=== PATIENT | male | born 1935 | race Caucasian/White ===

== ENCOUNTER → 2016-09-11 | Outpatient (CLI) | payer MEDICARE, OTHER ==
[~2016-09-11] MED LIST: BENADRYL25 MG PO; BONIVA150 MG PO; CALTRATE-600 D600 MG PO; COLACE-DPS100 MG PO; COREG25 MG PO; COUMADIN2 MG PO; COUMADIN3 MG PO; DULCOLAX10 MG PR; DULERA 100/58.8 GM IH; FLEXERIL-DPS10 MG PO; FLOMAX DPS0.4 MG PO; LASIX DPS20 MG PO; LOTRISONE TP; LYRICA25 MG PO; MAALOX DPS30 ML PO; MICRO-K DPS10 MEQ PO; MIRALAX17 GM PO; MUCINEX600 MG PO; NITROSTAT0.4 MG SL; OCEAN NASAL MIS45 ML NS; OXY IR DPS5 MG PO; PEPCID DPS20 MG PO; PROSCAR5 MG PO; PROVENTIL HFA6.7 GM IH; PROZAC40 MG PO; ROBITUSSIN PO; SENOKOT8.6 MG PO; SURFAK240 MG PO; SYNTHROID50 MCG PO; TYLENOL DPS325 MG PO; TYLENOL EXTRA500 MG PO; ULTRAM DPS50 MG PO; ULTRAM50 MG PO; VASOTEC DPS10 MG PO; ZOFRAN4 MG PO
== END | disposition home or self-care (01) ==
LOC: PTH.S 10:43
DX: Z01.812 Encounter for preprocedural laboratory examination (principal)

== ENCOUNTER 2016-09-25 09:58 | Inpatient (IN) | payer MEDICARE, OTHER ==
[~2016-09-25] VITALS: Ht 177.8 cm; Wt 89.1 kg
[~2016-09-25 09:58] MED LIST changes: -OXY IR DPS5 MG PO; -ULTRAM DPS50 MG PO
--- NOTE | 2016-09-27 13:33 | CO ---
ADMIT: 09/25/2016 RM/LOC: 502 [facility] MR#: [id number] [address] [address] LAZARO EDWARDS [address] [place] [address] Consultation SEX: M AGE: 81 : 1935 DATE OF CONSULTATION: 09/11/2016 ATTENDING PHYSICIAN: Neymar Mathews CONSULTING PHYSICIAN: Rudolph Matamoros MD CHIEF COMPLAINT: Preoperative evaluation facing a right total knee arthroplasty with Dr. Mathews. HISTORY OF PRESENT ILLNESS: Mr. Edwards is a very nice, 80-year-old, male with multiple medical problems as outlined below. He actually had his left total knee arthroplasty done last May of 2016 and got along well with it after a course in the skilled unit. His right knee has continued to give him trouble and it is very difficult for him to ambulate - he uses a walker because of his other multiple orthopedic issues - see below. He and Dr. Mathews have agreed to proceed to a right total knee arthroplasty and we were asked to see him for preoperative evaluation. Of course he has other multiple medical issues - see below. With his previous total knee arthroplasty, he has required skilled care and he wishes to consider that again with this operation. PAST MEDICAL HISTORY: Childhood and early development have been normal. His hospitalizations include March 2015 with acute respiratory failure, septic shock and lactic acidosis with pneumonia. He carries a diagnosis of nonischemic cardiomyopathy with an EF of 40%-45% with his last echo. He has chronic atrial fibrillation and is status post AV alex ablation and placement of single-chamber pacemaker in 2009 - he remains on Coumadin. He also has hypothyroidism, severe diffuse osteoporosis, systemic hypertension, type 2 diabetes (last hemoglobin A1c of 6.2% on 07/13/2016), benign prostatic hypertrophy, status post multiple fractures, peripheral neuropathy, and COPD/reactive airways. MEDICATIONS: His current medications include: 1. Potassium chloride ER 20 mEq b.i.d. 2. Ramipril 10 mg daily. 3. Carvedilol 25 mg b.i.d. 4. Warfarin 3 mg daily. 5. Finasteride 5 mg daily. 6. Lyrica 25 mg daily. 7. Tolterodine ER 4 mg at bedtime p.r.n. 8. Advair 250/50 Diskus one inhalation b.i.d. 9. Glen-Synephrine nasal spray, 1 both nostrils b.i.d. p.r.n. 10.Extra-strength Tylenol 500 q.6 hours. 11.Lasix 20 mg daily. 12.Calcium 600 with D 400 b.i.d. ALLERGIES: THERE IS AN ALLERGY REPORTED TO PENICILLIN. SOCIAL HISTORY: Reveals that he has never smoked. He does not use alcohol. 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 He has had increasing debilitation. FAMILY HISTORY: Not significant. REVIEW OF SYSTEMS: Pretty much 10 points negative except that since his last total knee arthroplasty, he required kyphoplasty at T11 and L2 on 08/09/2016 and got along well with that with good relief of his pain. PHYSICAL EXAMINATION: GENERAL: He is alert, walks fairly well with a walker. He is somewhat stooped from his previous injuries. VITAL SIGNS: His blood pressure is 125/70, pulse of about 85 and regular, O2 sats are 97% on room air. His weight is 180 pounds with a BMI of 27. HEENT: Essentially negative (he had full dental evaluation last May 2016). NECK: Reasonably supple. I do not detect any bruits. LUNGS: Clear to auscultation. CARDIAC: Shows a regular rhythm now. I do not detect an obvious murmur. ABDOMEN: Soft. No masses, tenderness, or organomegaly. GENITORECTAL: Exam was not done. EXTREMITIES: He has obvious right knee degenerative change and walks with a right limp with his walker. NEUROLOGIC: Otherwise normal within his ability to test. IMPRESSION: 1. Increasingly severe degenerative arthritis of the right knee - facing right total knee arthroplasty. 2. Recent two-level vertebral kyphoplasties for compression fractures. 3. Chronic atrial fibrillation - on chronic Coumadin therapy and status post AV alex ablation and single-chamber pacemaker. 4. Benign prostatic hypertrophy. 5. Status post multiple bone fractures. 6. Type 2 diabetes. 7. Hyperlipidemia. 8. Systemic hypertension. 9. Hypothyroidism. 10.Lower extremity neuropathy. 11.Severe osteoporosis. 12.History of hospitalization in 2014 with pneumonia and respiratory ADMIT: 09/25/2016 RM/LOC: 502 [facility] MR#: [id number] [address] [address] LAZARO EDWARDS [address] [place] [address] Consultation SEX: M AGE: 81 : 1935 failure. 13.Left total knee arthroplasty, May of 2016. PLAN: Reviewed his preop labs. They all look really good. He has had no recent illnesses. With his previous operations, he had no problems with anesthesia, so I think he is as ready for this right total knee arthroplasty as he will ever be. I think he will do well with it. I will follow him medically with you. Thanks for including us in his care. EDIT: 09/26/20162001 ajf Rudolph Matamoros MD/ javy JOB #: [id number] CC: Neymar Mathews, Attending Physician Rudolph Matamoros, Family Physician
--- NOTE | 2016-09-28 08:58 | HP ---
ADMIT: 09/25/2016 RM/LOC: 502 [facility] MR#: [id number] [address] [address] KALEN LAZARO D [address] [place] [address] Pre-OP History and Physical SEX: M AGE: 81 : 1935 DATE OF SERVICE: CHIEF COMPLAINT: Right knee pain, degenerative joint disease. HISTORY OF PRESENT ILLNESS: The patient is a 81-year-old male, who was actually about four months status post left total knee arthroplasty, doing well with this. Having quite a bit of pain in the right knee limiting his activities. At this point, he would like to proceed with a right total knee arthroplasty as he has failed conservative treatment. PAST MEDICAL HISTORY: Significant for: 1. Atrial fibrillation. 2. Chronic back pain with some osteoporotic compression fracture. 3. Benign prostatic hypertrophy. 4. Diabetes mellitus type 2. 5. Fatigue. 6. He has had a fractured humerus and radius in the past. 7. Herpes zoster. 8. Hyperlipidemia. 9. Hypertension. 10.Hypothyroidism. 11.Neuralgia. 12.Osteoarthritis. CURRENT MEDICATIONS: Include: 1. Advair Diskus. 2. Calcium. 3. Carvedilol. 4. Detrol LA. 5. Finasteride. 6. Stool softener. 7. Lasix. 8. Lyrica. 9. MiraLax. 10.Nitrostat. 11.Potassium. 12.Ramipril. 13.Synthroid. 14.Tramadol. 15.Tylenol extended release. 16.Coumadin. ALLERGIES: PENICILLIN. SOCIAL HISTORY: The patient denies smoking or alcohol use at this time. He does live here in [place]. REVIEW OF SYSTEMS: Noncontributory. ADMIT: 09/25/2016 RM/LOC: 502 [facility] MR#: [id number] [address] [address] LAZARO HIGUERA [address] [place] [address] Pre-OP History and Physical SEX: M AGE: 81 : 1935 PHYSICAL EXAMINATION: HEENT: As per Dr. Matamoros's preoperative medical evaluation. HEART: As per Dr. Matamoros's preoperative medical evaluation. LUNGS: As per Dr. Matamoros's preoperative medical evaluation. ABDOMEN: As per Dr. Matamoros's preoperative medical evaluation. Examination of the right knee, 5 degrees short of full extension. Flexion about 120 degrees. He does have crepitus knee range of motion. Tenderness along both medial lateral joint lines as well as the parapatellar region. No gross instability. Otherwise, distally neurovascularly intact. X-rays show significant tricompartmental degenerative joint disease as well as osteoporosis. Does have some osteophyte formation. I do not see any acute fracture dislocations or other obvious bony lesions here. ASSESSMENT: Right knee degenerative joint disease. PLAN: At this point, the patient has failed conservative treatment, and would like to proceed with a right total knee arthroplasty. We discussed the procedure as well as risks and benefits with him. The patient has seen Dr. Matamoros for preoperative medical clearance. We will plan on doing a right total knee arthroplasty at the hospital on 09/25/2016. EDIT: 09/26/20161999 loretta Mathews MD/ javy JOB #: [id number] CC: Neymar Mathews, Attending Physician Rudolph Matamoros, Family Physician
--- NOTE | 2016-09-28 08:58 | OR ---
ADMIT: 09/25/2016 RM/LOC: 502 [facility] MR#: [id number] [address] [address] LAZARO HIGUERA [address] [place] [address] Operative/Delivery Room Report SEX: M AGE: 81 : 1935 SURGERY DATE: 09/25/2016 SURGEON: Neymar Mathews MD PREOPERATIVE DIAGNOSIS: Right knee degenerative joint disease. POSTOPERATIVE DIAGNOSIS: Right knee degenerative joint disease. PROCEDURES: Right total knee arthroplasty with Exparel intra-articular knee block as well as lateral release. WASTEWATER TREATMENT OPERATOR: PERLA German ANESTHESIA: Spinal converted to general. ESTIMATED BLOOD LOSS: 50 mL. TOTAL TOURNIQUET TIME: Approximately 105 minutes. COMPLICATIONS: None. CONDITION: Stable to recovery room. IMPLANTS USED: We used a DePuy Sigma posterior stabilized fixed bearing knee size 6 femoral component, a size 5 tibial tray, 41 mm patellar button, and a 10 mm tibial insert. INDICATIONS: The patient is a 81-year-old male longstanding history of bilateral knee pain and degenerative joint disease, has failed conservative treatment. He is status post left total knee arthroplasty. He has done well with this. At this point, he elected to proceed with a right total knee arthroplasty. We discussed the procedure as well as risks and benefits with him at length. Questions were answered. He did agree to proceed. DESCRIPTION OF PROCEDURE: After informed consent was obtained, the patient was then taken to the operating room, placed on the operative table in supine position. Attempt at spinal anesthetic were unable to do this. He was then returned supine, and general anesthetic was administered. After adequate general anesthesia, tourniquet was placed in right upper thigh, and the right lower extremity was prepped and draped in usual sterile fashion. Once this was completed, we exsanguinated the right lower extremity, inflated the tourniquet at 300 mmHg. Once this was completed, we then made a midline incision through the skin and subcutaneous tissues making a bit of a medial flap here. We then entered the knee through a medial parapatellar incision. We then excised the synovium from the suprapatellar region. Once this was completed, a medial release was performed off the proximal medial tibia using Bovie electrocautery. The patella was then everted, knee flexed, and the infrapatellar fat pad was excised. Once this was completed, medial lateral ADMIT: 09/25/2016 RM/LOC: 502 [facility] MR#: [id number] [address] [address] LAZARO HIGUERA [facility] [place] [address] Operative/Delivery Room Report SEX: M AGE: 81 : 1935 retractors were placed. The guide for the distal femoral cut was then placed into the distal femur. This was pinned into position, removed 13 mm from the distal femur in 5 degrees of valgus. We then made our distal femoral cut. Once this was completed, placed the tibial guide, placed the guide onto the proximal tibia. Once this was lined up well, we then pinned this and made our tibial cut. Tibial bone was then removed. We then placed a 10 mm spacer block and this was just a little bit tight here. At this point, we did elect to remove some additional tibia replaced the tibial cutting guide and removed about a 4 mm here. Once this was completed, the attention directed to the patella, placed the patellar cutting guide to remove about 10 mm of patella, everted the patella, made our patellar cut. This sized to about a size 41 and placed the 41 template onto the patella and drilled the lugs for this. We then placed a 41 mm patellar button. The knee was then flexed back up. We placed the femoral sizing guide. I pinned this in 3 degrees of external rotation. This sized to a size 6. We then placed a size 6, four-in-one cutting block onto the distal femur. Moving this anteriorly 2 mm. This was then pinned into position. Our anterior, posterior, and chamfer cuts were then performed. Once this was completed, we then placed the box cutting guide for size 6 pinned this into position, made our box cut. Once this was completed, we then trialed the knee with a size 6 femoral component, a 5 tibial tray with 10 mm insert and a 41 mm patellar button. Patella did track a little bit laterally, and we performed a lateral release here. There was good full extension, good flexion, maybe just some slight laxity medially. At this point, we then removed the trial components, placed medial lateral popliteal retractors sized the tibia to a size 5, placed a size 5 tray on the tibia, pinned this into position and prepared this using the reamer, followed by the keel punch. Once everything was prepared, the leg was brought back in extension. Logger was placed. I removed the remainder of the meniscus and any other tissue here in the knee joint. We then copiously irrigated the knee and injected the posterior medial and lateral capsules using Exparel. Once this was completed, the components were opened on the back table to include a size 6 femoral component, a size 5 tibial tray, and 41 mm patellar button. We then flexed the knee back up, placed medial lateral popliteal retractors including the bone ends using a pulse lavage and drying these thoroughly. While cement was being mixed on the back table after the components were opened. Once the cement was ready, we finger packed this onto the tibia, placed our tibial tray, impacted this into position removing excess cement using a [place] elevator. Once this was completed, the cement was then placed onto the femur. We then placed the femoral component, impacted this into position once again, removing cement using a [place] elevator. We placed a size 10 tibial insert. Held the knee in full extension, placed the heel on a pad on the table. Cement was then placed onto the patella. Patellar button was then placed clamped, and we removed the excess cement using a [place] elevator here as well. Once this was completed, we copiously irrigated the wound once again and allowed the cement to cure. Once cement was fully cured, we elected ADMIT: 09/25/2016 RM/LOC: 502 [facility] MR#: [id number] [facility] [place] [address] [place], [place] [address] LAZARO HIGUERA [address] [place] [address] Operative/Delivery Room Report SEX: M AGE: 81 : 1935 to use a 10 mm tibial spacer, removed the trial spacer, cleaned everything out. Once again, cleaned the tibial tray, placed the permanent 10 mm spacer into the tray and impacted this and locked this into position. Once this was completed, the knee was once again copiously irrigated. A medium Hemovac drain was then placed. Exparel was injected into the remainder of the quad tendon, periosteum, and synovium here. The medial parapatellar incision was then reapproximated using #1 Vicryl in a [id number] fashion. We irrigated the wound one final time. Subcutaneous tissues closed using 2-0 Vicryl in simple interrupted fashion. The skin was closed using skin hardik. A sterile compressive dressing was then applied consisting of Xeroform, plain gauze, ABDs, Webril, Brijesh wrap from the foot to the thigh. The patient was then transferred to recovery room in stable condition. Neymar Mathews MD/ javy JOB #: [id number] CC: Neymar Mathews, Attending Physician Rudolph Matamoros, Family Physician
[2016-09-30] MEDS ORDERED: TYLENOL DPS325 MG PO (14:04)
[2016-09-30] MEDS ORDERED: ULTRAM DPS50 MG PO (14:04)
[2016-09-30] MEDS ORDERED: OXY IR DPS5 MG PO (14:05)
--- NOTE | 2016-10-16 11:52 | DS ---
ADMIT: 09/25/2016 RM/LOC: 533 [facility] MR#: [id number] [address] [address] [place] [address] General Discharge Summary SEX: M AGE: 81 : 1935 ADMISSION DATE: 09/25/2016 DISCHARGE DATE: 09/28/2016 REASON FOR ADMISSION: Elective right total knee arthroplasty after failing conservative treatment. PREOPERATIVE DIAGNOSIS: Right knee degenerative joint disease. POSTOPERATIVE DIAGNOSIS: Right knee degenerative joint disease. PROCEDURE PERFORMED: Right total knee arthroplasty. SURGEON: Neymar Mathews MD. LEAD RUBY ON RAILS DEVELOPER: Jose De Jesus Gonzales PA-C. ANESTHESIA: Spinal converted to general. ESTIMATED BLOOD LOSS: 50 mL. COMPLICATIONS: None. ACTIVE MEDICAL PROBLEMS: Atrial fibrillation, benign prostatic hypertrophy, diabetes mellitus type 2, hyperlipidemia, hypertension, hypothyroidism, neuralgia, and osteoarthritis. HOSPITAL COURSE: The patient was admitted on 09/25/2016, for elective right total knee arthroplasty done successfully without any complications by Dr. Mathews. The patient tolerated the procedure well. The patient did well with pain control with the use of intraoperative Exparel and postoperative oral analgesics. The patient did suffer from some mild acute blood-loss anemia. His hemoglobin dropped to 9.0 on 09/28/2016, but he remained hemodynamically stable and did not require blood transfusion. By postoperative day #3, he was doing well with physical therapy. He was safe and stable and ready for discharge toa residential facility with plans for outpatient physical therapy. DISCHARGE MEDICATIONS: 1. Altace 10 mg daily. 2. Caltrate W/D DPS 600 mg tablet twice a day. 3. Coreg DPS 25 mg twice a day with meals. 4. Coumadin 3 mg every 13 hours. 5. Klor-Con 20 mEq once a day. 6. Lasix 20 mg daily. 7. Lyrica 25 mg daily. 8. MiraLax 17 g daily. ADMIT: 09/25/2016 RM/LOC: 533 [facility] MR#: [id number] [address] [address] [place] [address] General Discharge Summary SEX: M AGE: 81 : 1935 9. Proscar DPS 5 mg daily. 10.Senokot 1 tablet twice a day. 11.Tylenol 325 mg two tablets four times a day. 12.Ultram 50 mg every 6 hours as needed. 13.Lovenox 30 mg twice a day for a week. 14.Oxycodone 5 mg one to two tablets every 4 hours for breakthrough pain. 15.Tylenol 325 mg every 4 hours as needed. DISCHARGE INSTRUCTIONS: The patient was discharged to an outpatient facility with plans for outpatient physical therapy per total knee arthroplasty protocol. Follow up in the orthopedic office in 2 weeks for wound check, in 6 weeks with x-ray. Follow up with primary care as directed. PERLA Moran / Neymar Mathews MD / leidal JOB #: [id number] CC: Neymar Mathews MD, Attending Physician Rudolph Matamoros MD, Family Physician
== END 2016-09-28 11:11 | DRG 470 ==
LOC: WOR 09:58 → 5MS 09:58
PROVIDERS: ADMIT Orthopaedic Surgery
PROC: 0SRC0J9 Replacement of Right Knee Joint with Synthetic Substitute, Cemented, Open Approach (ICD-10-PCS; principal; 2016-09-25)
DX: M17.11 Unilateral primary osteoarthritis, right knee (principal); I42.9 Cardiomyopathy, unspecified; E11.42 Type 2 diabetes mellitus with diabetic polyneuropathy; D62 Acute posthemorrhagic anemia; J44.9 Chronic obstructive pulmonary disease, unspecified; M54.9 Dorsalgia, unspecified; G89.29 Other chronic pain; M81.0 Age-related osteoporosis without current pathological fracture; N40.0 Benign prostatic hyperplasia without lower urinary tract symptoms; E78.5 Hyperlipidemia, unspecified; E03.9 Hypothyroidism, unspecified; I10 Essential (primary) hypertension; M79.2 Neuralgia and neuritis, unspecified; I48.2 Chronic atrial fibrillation; Z95.0 Presence of cardiac pacemaker; Z79.01 Long term (current) use of anticoagulants; Z96.652 Presence of left artificial knee joint

== ENCOUNTER → 2016-10-16 | Outpatient (CLI) | payer OTHER, MEDICARE ==
[~2016-10-16] MED LIST changes: +OXY IR DPS5 MG PO; +ULTRAM DPS50 MG PO
== END | disposition home or self-care (01) ==
LOC: RAD.S 13:57
DX: M79.604 Pain in right leg (principal); M79.89 Other specified soft tissue disorders